=== PATIENT | female | born 1990 | race Caucasian/White ===

== ENCOUNTER 2019-07-05 11:45 | Emergency (ER) | payer BC, MEDICAID ==
[2019-07-05] MEDS ORDERED: ONDANSETRON 4 MG TAB.RAPDIS PO ONE (11:52)
--- NOTE | 2019-07-05 11:53 | ER Document Report ---
ED Medical Screen (RME) - General Chief Complaint: Abdominal Pain Stated Complaint: ABDOMINAL PAIN Time Seen by Provider: 07/05/19 11:52 Mode of Arrival: Ambulatory Information source: Patient Notes: Patient presents with a 6-day history of right lower quadrant pain. Patient reports fever of 99 off and on over the past several days. Patient does complain of nausea as well as diarrhea. No urinary symptoms. I have greeted and performed a rapid initial assessment of this patient. A comprehensive ED assessment and evaluation of the patient, analysis of test results and completion of the medical decision making process will be conducted by additional ED providers. TRAVEL OUTSIDE OF THE [place] IN LAST 30 DAYS: No - Related Data Allergies/Adverse Reactions: No Known Allergies Allergy (Verified 07/05/19 11:52) Past Medical History - Social History Chew tobacco use (# tins/day): No Frequency of alcohol use: None Drug Abuse: None Physical Exam - Vital signs Vitals: Temp Pulse Resp BP Pulse Ox 98.3 F 74 16 116/72 100 07/05/19 11:49 07/05/19 11:49 07/05/19 11:49 07/05/19 11:49 07/05/19 11:49 - Abdominal Tenderness: Tender - Right upper quadrant Course - Vital Signs Vital signs: Temp Pulse Resp BP Pulse Ox 98.3 F 74 16 116/72 100 07/05/19 11:49 07/05/19 11:49 07/05/19 11:49 07/05/19 11:49 07/05/19 11:49
[2019-07-05 12:31] LABS: ABSOLUTE EOSINOPHILS # (AUTO) 0.1 10^3/uL (0.0-0.6); ABSOLUTE LYMPHOCYTES (AUTO) 2.2 10^3/uL (0.5-4.7); ABSOLUTE MONOCYTES (AUTO) 0.4 10^3/uL (0.1-1.4); ABSOLUTE NEUT (AUTO) 2.9 10^3/uL (1.7-8.2); BASOPHILS % (AUTO) 0.4 % (0-2); EOSINOPHILS % (AUTO) 1.8 % (0-6); HEMATOCRIT 40.9 % (36.0-47.0); HEMOGLOBIN 13.8 g/dL (12.0-15.5); LYMPHOCYTES % (AUTO) 38.7 % (13-45); MEAN CORPUSCULAR HEMOGLOBIN 30.2 pg (27.0-33.4); MEAN CORPUSCULAR HGB CONC 33.8 g/dL (32.0-36.0); MEAN CORPUSCULAR VOLUME 89 fl (80-97); MONOCYTES % (AUTO) 7.8 % (3-13); PLATELET COUNT 186 10^3/uL (150-450); RED BLOOD COUNT 4.58 10^6/uL (3.72-5.28); RED CELL DISTRIBUTION WIDTH 13.6 % (11.5-14.0); SEGMENTED NEUTROPHILS % (AUTO) 51.3 % (42-78); TOTAL CELLS COUNTED % (AUTO) 100 %; WHITE BLOOD COUNT 5.7 10^3/uL (4.0-10.5)
[2019-07-05 12:35] LABS: APPEARANCE,URINE SLIGHTLY-CLOUDY; BILIRUBIN,URINE NEGATIVE (NEGATIVE); COLOR,URINE YELLOW; GLUCOSE, URINE NEGATIVE (NEGATIVE); KETONES,URINE NEGATIVE (NEGATIVE); LEUKOCYTE ESTERASE,URINE NEGATIVE (NEGATIVE); NITRITE,URINE NEGATIVE (NEGATIVE); PROTEIN,URINE NEGATIVE (NEGATIVE); URINE SPECIFIC GRAVITY 1.021; UROBILINOGEN,URINE NEGATIVE mg/dL (<2.0)
[2019-07-05 12:51] LABS: ALBUMIN 4.4 g/dL (3.5-5.0); ALKALINE PHOSPHATASE 36 U/L (38-126); ANION GAP 10 (5-19); ASPARTATE AMINO TRANSFERASE 21 U/L (14-36); BILIRUBIN,DIRECT 0.1 mg/dL (0.0-0.4); BILIRUBIN,TOTAL 0.5 mg/dL (0.2-1.3); BLOOD UREA NITROGEN 12 mg/dL (7-20); CALCIUM 9.5 mg/dL (8.4-10.2); CARBON DIOXIDE 25 mmol/L (22-30); CHLORIDE 104 mmol/L (98-107); GLUCOSE 93 mg/dL (75-110); POTASSIUM 4.3 mmol/L (3.6-5.0); TOTAL PROTEIN 7.3 g/dL (6.3-8.2)
--- NOTE | 2019-07-05 12:57 | RADIOLOGY REPORT (SQ) ---
EXAM DESCRIPTION: U/S ABDOMEN LIMITED W/O DOP COMPLETED DATE/TIME: 07/05/2019 12:20 pm REASON FOR STUDY: RUQ pain COMPARISON: None. TECHNIQUE: Dynamic and static grayscale images acquired of the abdomen and recorded on PACS. Additio nal selected color Doppler and spectral images recorded. LIMITATIONS: None. FINDINGS: PANCREAS: No masses. Visualized pancreatic duct normal caliber. LIVER: No masses. Echotexture normal. LIVER VASCULATURE: Normal directional flow of the main portal vein and hepatic veins. GALLBLADDER: No stones. Normal wall thickness. No pericholecystic fluid. ULTRASOUND-DETECTED GORDILLO'S SIGN: Negative. INTRAHEPATIC DUCTS AND COMMON DUCT: CBD and intrahepatic ducts normal caliber. No filling defects. INFERIOR VENA CAVA: Normal flow. AORTA: No aneurysm. RIGHT KIDNEY: Normal size. Normal echogenicity. No solid or suspicious masses. No hydronephrosis. No calcifications. PERITONEAL AND RIGHT PLEURAL SPACE: No ascites or effusions. OTHER: No other significant findings. IMPRESSION: NORMAL RIGHT UPPER QUADRANT ULTRASOUND. TECHNICAL DOCUMENTATION: JOB ID: [id number] [employer]- All Rights Reserved Reading location - IP/workstation name: [email or web address]
--- NOTE | 2019-07-05 14:03 | ER Document Report ---
ED General - General Chief Complaint: Abdominal Pain Stated Complaint: ABDOMINAL PAIN Time Seen by Provider: 07/05/19 11:52 Mode of Arrival: Ambulatory TRAVEL OUTSIDE OF THE [place] IN LAST 30 DAYS: No - HPI Notes: Patient is a 29-year-old female who presents emergency department for evaluation of abdominal pain. Is been going on for about 5 to 6 days. She describes it as a "hunger pain." She states is dull. Nothing seems to make it better or worse. She does have some diminished appetite but denies any nausea or vomiting. She has had some diarrhea, last episode was on Saturday. She is had "low-grade" fevers this week, but nothing above 100.4. She denies any urinary symptoms. No respiratory symptoms, not coughing or short of breath. - Related Data Allergies/Adverse Reactions: No Known Allergies Allergy (Verified 07/05/19 11:52) Home Medications: Oral contraceptives daily Past Medical History - General Information source: Patient - Social History Smoking Status: Never Smoker Chew tobacco use (# tins/day): No Frequency of alcohol use: None Drug Abuse: None Family History: Reviewed & Not Pertinent Patient has suicidal ideation: No Patient has homicidal ideation: No Review of Systems - Review of Systems Constitutional: See HPI EENT: No symptoms reported Cardiovascular: No symptoms reported Respiratory: No symptoms reported Gastrointestinal: See HPI Genitourinary: No symptoms reported Musculoskeletal: No symptoms reported Skin: No symptoms reported Neurological/Psychological: No symptoms reported Physical Exam - Vital signs Vitals: Temp Pulse Resp BP Pulse Ox 98.3 F 74 16 116/72 100 07/05/19 11:49 07/05/19 11:49 07/05/19 11:49 07/05/19 11:49 07/05/19 11:49 - Notes Notes: Vital signs reviewed, please refer to chart. Head is normocephalic, atraumatic. Pupils equal round, reactive to light. Neck is supple without meningismus. Heart is regular rate and rhythm. Lungs are clear to auscultation bilaterally. Abdomen is soft, very mildly tender in the epigastric region without rebound or guarding, normoactive bowel sounds throughout. Extremities without cyanosis, clubbing. Posterior calves are nontender. Peripheral pulses are equal. Skin is warm and dry. Patient is awake, alert, neurological exam is nonfocal. Course - Re-evaluation Re-evalutation: 07/05/19 13:59 Patient presents emergency department for evaluation. She had laboratory vesication's and imaging is ordered through triage. Laboratory investigations failed to reveal any significant abnormality. Ultrasound was unremarkable as well. Patient's abdominal exam is nonsurgical. At this point I suspect a mild gastritis, potentially an infectious gastroenteritis. Her diarrhea has resolved. Encouraged her to stay hydrated, eat bland foods. I will send her home on an H2 mayur. She is to follow-up with primary care, return to the ED with worsening new concerning symptoms of any sort. - Vital Signs Vital signs: Temp Pulse Resp BP Pulse Ox 98.3 F 74 16 116/72 100 07/05/19 11:49 07/05/19 11:49 07/05/19 11:49 07/05/19 11:49 07/05/19 11:49 - Laboratory Result Diagrams: 07/05/19 12:02 07/05/19 12:02 Laboratory results interpreted by me: 07/05/19 12:02 Alkaline Phosphatase 36 L - Diagnostic Test Radiology reviewed: Reports reviewed Radiology results interpreted by me: 07/05/19 14:00 Abdomen Ultrasound 07/05/19 11:52 IMPRESSION: NORMAL RIGHT UPPER QUADRANT ULTRASOUND. Discharge - Discharge Clinical Impression: Epigastric abdominal pain, Diarrhea Condition: Stable Disposition: HOME, SELF-CARE Instructions: Abdominal Pain ([facility]) Additional Instructions: Stay hydrated. Hall boring foods. Take Pepcid as directed daily. Follow-up with primary care this week. Return to the emergency department with worsening or new concerning symptoms of any sort.
[2019-07-05 14:24] VITALS: BP 112/66
== END 2019-07-05 14:13 | disposition home or self-care (01) ==
LOC: ER 11:45
DX: R10.13 Epigastric pain (principal); R10.816 Epigastric abdominal tenderness; R19.7 Diarrhea, unspecified; R63.0 Anorexia; Z79.3 Long term (current) use of hormonal contraceptives
CPT/HCPCS: 99284; 36415; 83690; 84703; 85025; 80053; 81001; 76705; S0119

== ENCOUNTER 2019-08-22 13:20 | Emergency (ER) | payer BC, MEDICAID ==
[2019-08-22 13:28] VITALS: BP 130/69
[2019-08-22] MEDS ORDERED: DIPH/PERTUSS(ACELL)/TETANUS VAC/PF 0.5 ML SYR (>=10YO) IM ONE (13:46)
--- NOTE | 2019-08-22 13:47 | ER Document Report ---
ED Medical Screen (RME) - General Chief Complaint: Redness of Eye Stated Complaint: RIGHT EYE PAIN Time Seen by Provider: 08/22/19 13:43 Mode of Arrival: Ambulatory Information source: Patient Notes: Patient is a 29-year-old female presenting to the emergency department chief complaint of sensation of foreign body in her right eye. Patient does wear contact lenses. She reports for the last month intermittently she has had a feeling of foreign body in the right upper quadrant of the right eye intermittently. She denies any direct trauma to the eye. She reports intermittent redness as well. Currently patient has erythema to the conjunctiva. I have greeted and performed a rapid initial assessment of this patient. A comprehensive ED assessment and evaluation of the patient, analysis of test results and completion of the medical decision making process will be conducted by additional ED providers. I have specifically instructed the patient or family members with the patient to immediately return to any nursing staff should anything change in the patient's condition or with their chief complaint. This medical record was dictated with voice recognizing software. There may be grammatical, syntax errors that are unintended. TRAVEL OUTSIDE OF THE [place] IN LAST 30 DAYS: No - Related Data Allergies/Adverse Reactions: No Known Allergies Allergy (Verified 08/22/19 13:42) Past Medical History - Social History Chew tobacco use (# tins/day): No Frequency of alcohol use: None Drug Abuse: None Physical Exam - Vital signs Vitals: Temp Pulse Resp BP Pulse Ox 98.2 F 81 18 130/69 H 99 08/22/19 13:28 08/22/19 13:28 08/22/19 13:28 08/22/19 13:28 08/22/19 13:28 Course - Vital Signs Vital signs: Temp Pulse Resp BP Pulse Ox 98.2 F 81 18 130/69 H 99 08/22/19 13:28 08/22/19 13:28 08/22/19 13:28 08/22/19 13:28 08/22/19 13:28
[2019-08-22] MEDS ORDERED: HOMATROPINE HBR 5% OPH SOLN 5 ML OD ONE (14:05)
[2019-08-22] MEDS ORDERED: KETOROLAC TROMETHAMINE 0.45% 4 DROP/0.4 ML DROPERETTE OD ONE (14:05)
[2019-08-22] MEDS ORDERED: TETRACAINE HCL 0.5% OPH SOLN 4 ML OD ONE (14:06)
--- NOTE | 2019-08-22 14:12 | ER Document Report ---
ED Eye Complaint - General Chief Complaint: Redness of Eye Stated Complaint: RIGHT EYE PAIN Time Seen by Provider: 08/22/19 13:43 Mode of Arrival: Ambulatory Information source: Patient, [facility] Records Notes: This 21-year-old female patient comes emergency room complaining of a 6-week history of right eye redness and irritation. She states that it comes and goes, she does wear contact lenses. States it feels like something is scratching the eye. She reports that usually if the eye is not red the contact does not bother her, but if it is a little bit irritated and the contact makes it much worse. She has not tried to see an eye doctor for these concerns. She states this morning her eye was considerably worse with the contact, so she removed the contact lens. TRAVEL OUTSIDE OF THE [place] 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 Lives with: Family Family History: Reviewed & Not Pertinent Patient has suicidal ideation: No Patient has homicidal ideation: No - Medical History Medical History: Negative Past Surgical History: Reports: Hx Appendectomy Review of Systems - Review of Systems Constitutional: No symptoms reported EENT: See HPI, Eye pain, Other - Wears contact lenses Cardiovascular: No symptoms reported Respiratory: No symptoms reported Gastrointestinal: No symptoms reported Genitourinary: No symptoms reported Female Genitourinary: No symptoms reported Musculoskeletal: No symptoms reported Skin: No symptoms reported Hematologic/Lymphatic: No symptoms reported Neurological/Psychological: No symptoms reported Physical Exam - Vital signs Vitals: Temp Pulse Resp BP Pulse Ox 98.2 F 81 18 130/69 H 99 08/22/19 13:28 08/22/19 13:28 08/22/19 13:28 08/22/19 13:28 08/22/19 13:28 Interpretation: Normal - General General appearance: Appears well, Alert In distress: None - HEENT Head: Normocephalic, Atraumatic Conjunctiva: Injected - Right eye has injected sclera Extraocular movements intact: Yes Eyelashes: Normal Pupils: PERRL Corrective lenses worn: Yes - Glasses and contact lenses - Respiratory Respiratory status: No respiratory distress - Cardiovascular Rhythm: Regular - Abdominal Inspection: Normal - Back Back: Normal - Extremities General upper extremity: Normal inspection General lower extremity: Normal inspection - Neurological Neuro grossly intact: Yes - Psychological Associated symptoms: Normal affect, Normal mood - Skin Skin Temperature: Warm Skin Moisture: Dry Skin Color: Normal Course - Vital Signs Vital signs: Temp Pulse Resp BP Pulse Ox 98.2 F 81 18 130/69 H 99 08/22/19 13:28 08/22/19 13:28 08/22/19 13:28 08/22/19 13:28 08/22/19 13:28 Discharge - Discharge Clinical Impression: Conjunctivitis Qualifiers: Conjunctivitis type: blepharoconjunctivitis Blepharoconjunctivitis type: contact Laterality: right Qualified Code(s): H10.531 - Contact blepharoconjunctivitis, right eye Condition: Stable Disposition: HOME, SELF-CARE Additional Instructions: Put 2 drops of the ciprofloxacin eyedrops into the right eye every 2 hours. Put 1 drop of the ketorolac eyedrops into the right eye every 4 hours. Do not put your contact lens in again until after you have been evaluated by an eye doctor. Follow-up with a local eye doctor tomorrow, either an carbon paper coating machine setter or nursery laborer. The two ophthalmology groups on staff here are listed below. There are several optometrists in [facility]. RETURN TO THE EMERGENCY ROOM IF ANY NEW OR WORSENING SYMPTOMS. Referrals: JS IGNACIO DO [ACTIVE STAFF] - Follow up as needed [facility] [Provider Group] - Follow up as needed
[2019-08-22] MEDS ORDERED: CIPROFLOXACIN HCL 0.3% OPH SOLN 2.5 ML OD ONE (15:59)
== END 2019-08-22 16:28 | disposition home or self-care (01) ==
LOC: ER 13:20
DX: H10.531 Contact blepharoconjunctivitis, right eye (principal); Z23 Encounter for immunization
CPT/HCPCS: 99282; 90471; 90715; J3490 ×2

== ENCOUNTER 2019-09-22 09:20 | Emergency (ER) | payer BC, MEDICAID ==
[2019-09-22 09:52] VITALS: BP 93/70
--- NOTE | 2019-09-22 10:16 | ER Document Report ---
HPI - HPI Patient complains to provider of: Headache fever Time Seen by Provider: 09/22/19 10:02 Onset: Other - Saturday Onset/Duration: Persistent Pain Level: 3 Context: 29-year-old female presents emergency department with complaints of headache that started Saturday fever today. Denies vomiting diarrhea. Reports she is eating drinking voiding bowel movement is normal. Did not receive the flu vaccine. Reports she took ibuprofen with minimal relief of symptoms. Associated Symptoms: Fever, Headache Exacerbated by: Denies Relieved by: Denies Similar symptoms previously: No Recently seen / treated by doctor: No - CONSTITUTIONAL Constitutional: REPORTS: Fever. DENIES: Chills - NEURO Neurology: REPORTS: Headache - RESPIRATORY Respiratory: REPORTS: Coughing - REPRODUCTIVE Reproductive: DENIES: : Past Medical History - General Information source: Patient Last Menstrual Period: 3 weeks - Social History Smoking Status: Never Smoker Chew tobacco use (# tins/day): No Frequency of alcohol use: None Drug Abuse: None Lives with: Family Family History: Reviewed & Not Pertinent Patient has suicidal ideation: No Patient has homicidal ideation: No - Medical History Medical History: Negative Past Surgical History: Reports: Hx Appendectomy Vertical Provider Document - CONSTITUTIONAL Agree With Documented VS: Yes Exam Limitations: No Limitations General Appearance: WD/WN, No Apparent Distress - Nontoxic looking - INFECTION CONTROL TRAVEL OUTSIDE OF THE [place] IN LAST 30 DAYS: No - HEENT HEENT: Atraumatic, Normal ENT Exam, Normocephalic, PERRLA. negative: Conjuctival Injection, Pharyngeal Erythema, Tympanic Membrane Bulging - NECK Neck: Normal Inspection, Supple - RESPIRATORY Respiratory: Breath Sounds Normal, No Respiratory Distress - CARDIOVASCULAR Cardiovascular: Regular Rate, Regular Rhythm - GI/ABDOMEN Gastrointestinal: Abdomen Soft, Abdomen Non-Tender - MUSCULOSKELETAL/EXTREMETIES Musculoskeletal/Extremeties: KT BEASLEY - NEURO Level of Consciousness: Awake, Alert, Appropriate Motor/Sensory: No Motor Deficit - DERM Integumentary: Warm, Dry, No Rash Course - Re-evaluation Re-evalutation: 09/22/19 10:15 29-year-old female presents with headache and fever since Saturday. Reports fever started today headache started Saturday. Has taken ibuprofen without relief of symptoms did not receive her flu vaccine. influenza test ordered. Patient instructed on p.o. fluids 09/22/19 10:58 Flu test negative. Patient instructed on this. Instructed on good handwashing Tylenol or Motrin as indicated for pain follow-up with her provider. She verbalized understanding. - Vital Signs Vital signs: Temp Pulse Resp BP Pulse Ox 98.5 F 81 16 93/70 L 97 09/22/19 09:51 09/22/19 09:51 09/22/19 09:51 09/22/19 09:51 09/22/19 09:51 Discharge - Discharge Clinical Impression: Fever, Headache Condition: Stable Disposition: HOME, SELF-CARE Instructions: Fever ([facility]), Headache ([facility]), Use of [id number] Ibuprofen ([facility]) Additional Instructions: *You have been evaluated for cold symptoms today, fever and headache *Increase fluid intake as discussed *Take ibuprofen as indicated for your headache Monitor your temperature take Tylenol as indicated Good handwashing *Follow up with a primary care provider within 1 week for recheck *Return to ED for worsening condition, changes, needs Referrals: JUANJOSE CANDELARIA MD [Primary Care Provider] - Follow up as needed
[2019-09-22 10:56] LABS: A TYPE INFLUENZA AG NEGATIVE (NEGATIVE); B INFLUENZA AG NEGATIVE (NEGATIVE)
== END 2019-09-22 11:32 | disposition home or self-care (01) ==
LOC: ER 09:20
DX: R50.9 Fever, unspecified (principal); R51 Headache; R05 Cough; Z79.899 Other long term (current) drug therapy
CPT/HCPCS: 87804; 99284

== ENCOUNTER 2020-08-30 11:51 | Outpatient (CLI) | payer BC, MEDICAID ==
[2020-08-30 12:45] LABS: APPEARANCE,URINE SLIGHTLY-CLOUDY; BILIRUBIN,URINE NEGATIVE (NEGATIVE); COLOR,URINE YELLOW; GLUCOSE, URINE NEGATIVE (NEGATIVE); KETONES,URINE TRACE mg/dL (NEGATIVE); LEUKOCYTE ESTERASE,URINE TRACE (NEGATIVE); NITRITE,URINE NEGATIVE (NEGATIVE); PROTEIN,URINE NEGATIVE (NEGATIVE); URINE SPECIFIC GRAVITY 1.015; UROBILINOGEN,URINE NEGATIVE mg/dL (<2.0)
[2020-08-30 13:06] LABS: URINE AMPHETAMINES SCREEN NEGATIVE; URINE BARBITURATES SCREEN NEGATIVE; URINE BENZODIAZEPINES SCREEN NEGATIVE; URINE COCAINE SCREEN NEGATIVE; URINE MARIJUANA (THC) SCREEN NEGATIVE; URINE METHADONE SCREEN NEGATIVE; URINE PHENCYCLIDINE SCREEN NEGATIVE
== END 2020-08-30 14:08 | disposition home or self-care (01) ==
LOC: LC 11:51
PROVIDERS: ATTEND Obstetrics & Gynecology
DX: O47.03 False labor before 37 completed weeks of gestation, third trimester (principal); Z3A.35 35 weeks gestation of pregnancy
CPT/HCPCS: 59025; 80307; 81001